=== PATIENT | female | born 1995 | race Asian ===

== ENCOUNTER 2020-03-22 17:41 | Emergency (ER) | payer BC ==
[~2020-03-22] VITALS: Ht 152.4 cm; Wt 46.7 kg
[2020-03-22 17:50] VITALS: Ht 152.4 cm; Wt 46.7 kg
[2020-03-22 19:16] VITALS: BP 102/54
== END 2020-03-22 19:16 | disposition home or self-care (01) ==
LOC: ED 17:41
DX: R07.0 Pain in throat (principal); Z88.1 Allergy status to other antibiotic agents